=== PATIENT | female | born 1965 | race Caucasian/White ===

== ENCOUNTER 2018-07-20 11:53 | Observation (INO) ==
[2018-07-20 11:57] VITALS: BMI 29.9
[2018-07-20] MEDS ORDERED: ZOFRAN INJ 4 MG VIAL ONE ×3 (12:10→14:45)
[2018-07-20] MEDS ORDERED: NS 1000 ML 1,000 ML ONE ×2 (12:15→14:56)
[2018-07-20] MEDS ORDERED: NS 1000 ML 1,000 ML IV ONE ×2 (12:22→15:04)
[2018-07-20] MEDS ORDERED: ZOFRAN INJ 4 MG VIAL IVP ONE ×2 (12:22→14:38)
[2018-07-20] MEDS ORDERED: DEMEROL INJ IVP ONE ×3 (12:43→17:57)
[2018-07-20] MEDS ORDERED: DEMEROL INJ ONE ×3 (12:46→17:59)
--- NOTE | 2018-07-20 12:48 | DR.GENAD ---
HPI Time Seen Time Seen by Provider: 07/20/18 12:22 PCP Primary Care Physician: delvin HPI Comment HPI Comment: PATIENT IS 52YR OLD WHITE FEMALE WITH HISTORY OF HYPERTENSION, DYSLIPIDEMIA HERE IN ED WITH NAUSEA AND VOMITING TIMES ONE DAY. SEENIN ED LAST NIGHT FOR PAIN AND NOW PAIN IS WORSE. HAVE NOT HELD DOWN FLUIDS. SHE IS WEAK. NO DIARRHEA OR CONSTIPATION. PATIENT IS NAUSEATED IN ED. Complaint/Symptoms Chief Complaint Doctors Comments: ABDOMINAL PAIN WITH NAUSEA AND VOMITING SINCE YESTERDAY. Chief Complaint:: stomach pains vomiting since yesterday, Nurses notes reviewed Nurses Notes Review: Yes Source History Provided: Patient Mode of Arrival Mode of Arrival: Wheelchair Timing Onset of Chief Complaint: 07/19/18 Came on: Suddenly Duration Duration: Constant Duration: Days Location Location: ABDOMEN. Severity Severity: Severe Modifying Factors Worsens:: MOVIING Improves:: LYING STILL. Associated Signs and Symptoms Associated Signs and Symptoms: NAUSEA, VOMITING. Other History Other History: HYPERTENSION. PMH PMH Past Medical History: Yes Past Medical History: Dyslipidemia and Hypertension Past Surgical History: Yes Surgical History: , Hysterectomy, Ortho Surgery and Other Family History History of Family Medical Conditions: Yes Family Medical History: Diabetes Mellitus and Hypertension Social History Does patient currently use any type of tobacco product: No Have you used tobacco products in the last 12 months: No Type of Tobacco Use: None Alcohol Use: None Do you use any recreational Drugs:: No Lives With: Spouse Lives Where: Home infectious screening In the last 2 months have you had wt loss of >10#?: NO Have you had fever, night sweats or hemotysis?: No Have you traveled outside the country in the last 6 months?: No Isolation: Standard ROS Review of Systems Constitutional: No Symptoms Reported, Weakness and Fatigue; negative Fever Eyes: No Symptoms Reported; negative Eye Pain, Tearing and Discharge ENTM: No Symptoms Reported; negative Ear Pain, Nose Discharge, Nose Congestion and Throat Pain Respiratoy: No Symptoms Reported; negative Moist Cough, Short of Breath, Wheezing and Hemoptysis Cardiovascular: No Symptoms Reported; negative Chest Pain, Edema and Palpitations Gastrointestinal/Abdominal: Abdominal Pain, Nausea and Vomiting; negative Constipation and Diarrhea Genitourinary: No Symptoms Reported; negative Dysuria, Frequency and Hematuria Neurological: No Symptoms Reported and Weakness; negative Headache and Dizziness Musculoskeletal: No Symptoms Reported; negative Back Pain, Muscle Pain and Neck Pain Integumentary: No Symptoms Reported; negative Change in Color, Itching, Bruises and Juandice Hematologic/Lymphatic: No Symptoms Reported; negative Easy Bleeding, Easy Bruising, Swollen Glands and Lymphadenopathy Endocrine: No Symptoms Reported; negative Flushing, Increased Thirst and In creased Urine Psychiatric: No Symptoms Reported All Other Systems: Reviewed and Negative PE Vital Signs Vitals: Temperature 98.7 F Pulse Rate [Right Brachial] 93 Pulse Rate [Left Brachial] 80 Pulse Rate 115 Respiratory Rate 18 Blood Pressure [Left Arm] 143/91 Blood Pressure [Right Arm] 150/94 Blood Pressure 136/82 O2 Sat by Pulse Oximetry 97 General General Appearance: Alert and In No Apparent Distress; negative In Distress Head Head Exam: Normal Inspection, Atraumatic and Normocephalic Eyes Eye exam: Normal Appearance, PERRL and EOMI; negative Scleral Icterus and Conjunctival Injection ENT ENT Exam: Normal Exam, Normal Oropharynx, Normal External Ear Exam, Mucous Membranes Moist and TM's Normal Bilaterally External Ear Exam: Normal External Inspection; negative Mastoid Tenderness, Pain with Movement and External Tenderness TM/Canal Exam: Bilateral: Normal Nose Exam: Normal Nose Exam; negative Sinus Tenderness, Nasal Deviation and Septal Hematoma Mouth Exam: Normal Inspection; negative Lip Swelling and Tongue Swelling Throat Exam: Normal Inspection; negative Tonsillar Erythema, Tonsillomegaly and Tonsillar Exudate Neck Neck Exam: Normal Inspection, Full ROM and Trachea Midline; negative Tenderness, Meningismus and Lymphadenopathy Chest Chest Inspection: Normal Inspection and Symmetric Chest Wall Rise; negative T enderness Respiratory Respiratory Exam: Normal Lung Sounds Bilat; negative Chest Wall Tenderness and Respiratory Distress Respiratory Exam: Bilateral: Clear to Auscultation Cardiovascular Cardiovascular Exam: Regular Rate and Normal Rhythm; negative Systolic Murmur, Diastolic Murmur, Rubs and Gallop Abdominal Exam Abdominal Exam: Normal Bowel Sounds, Soft and Tenderness Abdominal Tenderness: Diffuse and Severe Extremities Extremities Exam: Normal Inspection and Normal Capillary Refill; negative Tenderness, Edema and Calf Tenderness Back Back Exam: Normal Inspection; negative Tenderness, (R) CVA Tenderness, (L) CVA Tenderness, Muscle Spasm and Paraspinal Tenderness Neurologic Neurological Exam: Alert, Oriented X3 and CN II-XII Intact; negative Motor Sensory Deficit Psychiatric Psychiatric Exam: Normal Affect and Normal Mood Skin Skin Exam: Warm, Dry, Intact and Normal Color MDM Differential Diagnosis Differential Diagnosis: ABDOMINAL PAIN, BOWEL OBSTRUCTION, APPENDICITIS. DIVERTICULITIS, CHOLECYSTI COURSE Treatment Treatment: SEE ORDERS. Education/Counseling Education/Counseling: Patient Educated On: Diagnosis ROR Labs Reviewed Laboratory Results Reviewed?: Yes Result Diagrams: 07/23/18 04:07 07/23/18 08:40 Laboratory: 07/20/18 20:20 Perineal Fluid Wound Culture - Final Escherichia Coli WBC 7.9 X10^3/uL (3.6-10.0) 07/23/18 04:07 RBC 4.56 X10^6/uL (3.5-5.4) 07/23/18 04:07 Hgb 12.9 g/dL (12.0-16.0) 07/23/18 04:07 Hct 37.9 % (36.0-47.0) 07/23/18 04:07 MCV 83.2 fL (80.0-100.0) 07/23/18 04:07 MCH 28.4 pg (27.0-34.0) 07/23/18 04:07 MCHC 34.1 g/dL (33.0-35.0) 07/23/18 04:07 RDW 13.1 % (11.6-16.5) 07/23/18 04:07 Plt Count 226 X10^3/uL (150.0-450.0) 07/23/18 04:07 Plt Count Comment Adequate (ADEQUATE) 07/20/18 12:43 MPV 7.0 fL (7.4-11.0) L 07/23/18 04:07 Neut % (Auto) 67.5 % (42.0-75.0) 07/23/18 04:07 Lymph % (Auto) 20.1 % (21.0-51.0) L 07/23/18 04:07 [place] % (Auto) 7.5 % (0.0-13.0) 07/23/18 04:07 Eos % (Auto) 4.3 % (0.9-2.9) H 07/23/18 04:07 Baso % (Auto) 0.6 % (0.2-1.0) 07/23/18 04:07 Neut # (Auto) 5.3 x10^3/uL (2.2-4.8) H 07/23/18 04:07 Lymph # (Auto) 1.6 X10^3/uL (1.3-2.9) 07/23/18 04:07 [place] # (Auto) 0.6 x10^3/uL (0.3-0.8) 07/23/18 04:07 Eos # (Auto) 0.3 x10^3/uL (0.0-0.2) H 07/23/18 04:07 Baso # (Auto) 0.0 X10^3/uL (0.0-0.1) 07/23/18 04:07 Absolute Nucleated RBC 0.0 /100WBC 07/23/18 04:07 Total Counted 100 07/20/18 12:43 Neutrophils % (Manual) 85 % (39-76) H 07/20/18 12:43 Lymphocytes % (Manual) 9 % (13-43) L 07/20/18 12:43 Monocytes % (Manual) 6 % (4-9) 07/20/18 12:43 Plt Morphology Comment Normal (NORMAL) 07/20/18 12:43 RBC Morphology Normal (NORMAL) 07/20/18 12:43 Sodium 139 mmol/L (136-145) 07/23/18 04:07 Corrected Sodium TNP 07/23/18 04:07 Potassium 3.5 mmol/L (3.5-5.1) 07/23/18 08:40 Chloride 104 mmol/L (98-107) 07/23/18 04:07 Carbon Dioxide 27.4 mmol/L (21-32) 07/23/18 04:07 BUN 4 mg/dL (7-18) L 07/23/18 04:07 Creatinine 0.83 mg/dL (0.55-1.02) 07/23/18 04:07 Est GFR (MDRD) Af Amer > 60 (>60) 07/23/18 04:07 Est GFR (MDRD) Non-Af > 60 (>60) 07/23/18 04:07 Glucose 108 mg/dL (65-99) H 07/23/18 04:07 Calcium 8.8 mg/dL (8.5-10.1) 07/23/18 04:07 Corrected Calcium 9.9 mg/dL (8.5-10.1) 07/23/18 04:07 Magnesium 1.8 mg/dL (1.7-2.9) 07/23/18 04:07 Total Bilirubin 0.70 mg/dL (0.2-1.0) 07/23/18 04:07 AST 16 Units/L (15-37) 07/23/18 04:07 ALT 20 Units/L (12-78) 07/23/18 04:07 Alkaline Phosphatase 101 Units/L (46-116) 07/23/18 04:07 Total Protein 6.8 g/dL (6.4-8.2) 07/23/18 04:07 Albumin 2.6 g/dL (3.4-5.0) L 07/23/18 04:07 Globulin 4.2 g/dL (2.5-4.5) 07/23/18 04:07 Albumin/Globulin Ratio 0.6 Ratio (1.1-2.1) L 07/23/18 04:07 Amylase 49 Units/L (25-115) 07/20/18 12:43 Lipase 67 Units/L (73-393) L 07/20/18 12:43 Specimen Type Clean catch urine 07/20/18 14:54 Urine Color Yellow (YELLOW) 07/20/18 14:54 Urine Appearance Clear (CLEAR) 07/20/18 14:54 Urine pH 6.5 (5.0 - 8.0) 07/20/18 14:54 Ur Specific [place] 1.010 (1.000-1.030) 07/20/18 14:54 Urine Protein Negative (NEGATIVE) 07/20/18 14:54 Urine Glucose (UA) Negative (NEGATIVE) 07/20/18 14:54 Urine Ketones 4+ (NEGATIVE) 07/20/18 14:54 Urine Occult Blood 1+ (NEGATIVE) 07/20/18 14:54 Urine Nitrite Negative (NEGATIVE) 07/20/18 14:54 Urine Bilirubin Negative (NEGATIVE) 07/20/18 14:54 Urine Urobilinogen Normal (NORMAL) 07/20/18 14:54 Ur Leukocyte Esterase Negative (NEGATIVE) 07/20/18 14:54 Urine RBC 0-2 /HPF (NONE SEEN) 07/20/18 14:54 Urine WBC 0-2 /HPF (NONE SEEN) 07/20/18 14:54 Ur Squamous Epith Cells Rare /HPF (NEGATIVE) 07/20/18 14:54 Urine Bacteria Negative /HPF (NEGATIVE) 07/20/18 14:54 Ur Culture Indicated? No/not indicated 07/20/18 14:54 Acetone, Semi-Quant Negative (NEGATIVE) 07/20/18 18:09 Tissue Pathology To follow 07/20/18 20:24 XRAY XRAY Interpreted by: Radiologist XRAY Findings: REPORT ON RECORD NOTED AND DISCUSS WITH PATIENT. Diagnosis Discharge Problem: Acute appendicitis Qualifiers: Acute appendicitis type: with localized peritonitis Appendicitis gangrene presence: unspecified whether gangrene present Appendicitis perforation presence: without perforation Appendicitis abscess presence: without abscess Qu alified Code(s): K35.30 - Acute appendicitis with localized peritonitis, without perforation or gangrene Instructions Instructions: Hypertension, [id number] Laparoscopic Appendectomy, Adult, Care After, [id number] Laparoscopic Appendectomy, Adult Forms: Patient Portal
[2018-07-20 12:56] LABS: BASOPHILS % (AUTO) 0.1 % (0.2-1.0); EOSINOPHILS % (AUTO) 0.2 % (0.9-2.9); HEMATOCRIT 46.4 % (36.0-47.0); HEMOGLOBIN 15.5 g/dL (12.0-16.0); LYMPHOCYTES # (AUTO) 0.6 X10^3/uL (1.3-2.9); LYMPHOCYTES % (AUTO) 3.1 % (21.0-51.0); MEAN CORPUSCULAR HEMOGLOBIN 27.7 pg (27.0-34.0); MEAN CORPUSCULAR HGB CONC 33.3 g/dL (33.0-35.0); MEAN CORPUSCULAR VOLUME 83.4 fL (80.0-100.0); MEAN PLATELET VOLUME 6.6 fL (7.4-11.0); MONOCYTES # (AUTO) 0.7 x10^3/uL (0.3-0.8); MONOCYTES % (AUTO) 3.8 % (0.0-13.0); NEUTROPHILS # (AUTO) 18.1 x10^3/uL (2.2-4.8); NEUTROPHILS % (AUTO) 92.8 % (42.0-75.0); PLATELET COUNT 267 X10^3/uL (150.0-450.0); RED BLOOD COUNT 5.57 X10^6/uL (3.5-5.4); WHITE BLOOD COUNT 19.5 X10^3/uL (3.6-10.0)
[2018-07-20 12:59] LABS: AMYLASE 49 Units/L (25-115); LIPASE 67 Units/L (73-393)
[2018-07-20 13:04] LABS: PLATELET MORPHOLOGY COMMENT NORMAL (NORMAL)
[2018-07-20] MEDS ORDERED: ROBINUL ONE (14:45)
[2018-07-20] MEDS ORDERED: XYLOCAINE 1 % (PLAIN) ONE (14:45)
[2018-07-20] MEDS ORDERED: TORADOL 30 MG VIAL ONE (14:45)
[2018-07-20] MEDS ORDERED: QUELICIN (OR ANECTINE) ONE (14:45)
[2018-07-20] MEDS ORDERED: NEOSTIGMINE INJ ONE (14:45)
[2018-07-20] MEDS ORDERED: VERSED ONE (14:45)
[2018-07-20] MEDS ORDERED: SUPRANE ONE (14:45)
[2018-07-20] MEDS ORDERED: NORCURON INJ 10 MG VIAL ONE (14:45)
[2018-07-20] MEDS ORDERED: DIPRIVAN VIAL ONE (14:45)
[2018-07-20 14:50] LABS: ALANINE AMINOTRANSFERASE 31 Units/L (12-78); ALBUMIN 3.8 g/dL (3.4-5.0); ALKALINE PHOSPHATASE 159 Units/L (46-116); BLOOD UREA NITROGEN 12 mg/dL (7-18); CALCIUM 9.5 mg/dL (8.5-10.1); CARBON DIOXIDE 22.5 mmol/L (21-32); CHLORIDE 100 mmol/L (98-107); COR NA(FOR HYPERGLY) 139 mmol/L (136-145); CREATININE 0.81 mg/dL (0.55-1.02); SODIUM 139 mmol/L (136-145); TOTAL PROTEIN 8.3 g/dL (6.4-8.2); eGFR NON BLACK RACES > 60 (>60)
[2018-07-20 14:51] LABS: ASPARTATE AMINO TRANSFERASE 31 Units/L (15-37)
[2018-07-20 15:01] LABS: BILIRUBIN,URINE NEGATIVE (NEGATIVE); BLOOD/HEMOGLOBIN,URINE 1+ (NEGATIVE); GLUCOSE, URINE NEGATIVE (NEGATIVE); KETONES,URINE 4+ (NEGATIVE); LEUKOCYTE ESTERASE ,URINE NEGATIVE (NEGATIVE); NITRITES,URINE NEGATIVE (NEGATIVE); PH,URINE 6.5 (5.0 - 8.0); PROTEIN,URINE NEGATIVE (NEGATIVE); UROBILINOGEN,URINE NORMAL (NORMAL)
[2018-07-20 15:03] LABS: APPEARANCE,URINE CLEAR (CLEAR); COLOR,URINE YELLOW (YELLOW)
[2018-07-20 15:07] LABS: BACTERIA,URINE NEGATIVE /HPF (NEGATIVE); RBC,URINE 0-2 /HPF (NONE SEEN); SQUAMOUS EPITHELIAL CELL,UR RARE /HPF (NEGATIVE)
[2018-07-20] MEDS ORDERED: NS IRRIGATION 3000 ML ONE (15:39)
[2018-07-20] MEDS ORDERED: NS 100 ML IV 100 ML ONE (16:45)
--- NOTE | 2018-07-20 17:43 | CT ---
HISTORY: Epigastric and right flank pain, vomiting Study: CT abdomen and pelvis with contrast Comparison: None Technique: Multiple axial images of the abdomen and pelvis were obtained from the lung bases to the pubic symphysis after the administration of IV contrast. AEC was utilized. Findings: The visualized portions of the lung bases are unremarkable. The spleen, pancreas, kidneys, and adrenal glands are unremarkable. There is diffuse low attenuation within the liver compatible with fatty infiltration. The gallbladder is unremarkable in its CT appearance. No significant mesenteric or retroperitoneal lymphadenopathy can be observed. Sigmoid diverticulosis is noted. The patient is status post hysterectomy. The appendix is dilated and fluid-filled with mucosal enhancement and wall thickening with surrounding mesenteric fat stranding as well as with trace free fluid in the right lower quadrant and extending into the pelvis compatible with acute appendicitis without pneumoperitoneum to suggest perforation and without focal fluid collection to suggest abscess. The urinary bladder is grossly unremarkable. Lumbar spondylosis and scoliosis are noted. A mesenteric fat containing umbilical hernia is noted. IMPRESSION: Findings compatible with acute appendicitis without perforation or abscess. Other incidentals as above. Reported By:
[2018-07-20] MEDS ORDERED: ZOSYN VIAL 3.375 GRAMS 3.375 G in NS 100 ML IV + SPIKE MINIBAG* 100 ML IV ONE (18:37)
[2018-07-20] MEDS ORDERED: ZOSYN VIAL 3.375 GRAMS IV ONE (18:50)
[2018-07-20] MEDS ORDERED: NS 100 ML IV + SPIKE MINIBAG* 100 ML ONE (18:50)
[2018-07-20] MEDS ORDERED: DILAUDID INJ IVP PRN ×2 (19:10→20:21)
[2018-07-20] MEDS ORDERED: PEPCID 20 MG IV PREMIX* 20 MG/50 ML BAG IV PRN (19:10)
[2018-07-20] MEDS ORDERED: FENTANYL INJ 250 mcg ONE (19:24)
[2018-07-20] MEDS ORDERED: NS 1000 ML 1,000 ML IV SCH (20:00)
[2018-07-20] MEDS ORDERED: LR 1000 ML IV 1,000 ML ONE (20:04)
[2018-07-20] MEDS ORDERED: REGLAN INJ 10 MG VIAL IVP PRN (20:21)
[2018-07-20] MEDS ORDERED: PHENERGAN INJ 25 MG IM PRN (20:21)
[2018-07-20] MEDS ORDERED: BENADRYL INJ 50 MG VIAL IVP PRN (20:21)
[2018-07-20] MEDS ORDERED: ZOFRAN INJ 4 MG VIAL IVP PRN (20:21)
[2018-07-20] MEDS ORDERED: BACTROBAN TOPICAL OINT ONE (20:30)
[2018-07-20] MEDS ORDERED: FLAGYL IV PREMIX 500 MG BAG 500 MG/100 ML BAG IV SCH ×2 (21:00)
--- NOTE | 2018-07-20 21:09 | OR.GENERIC ---
Post-Op Note Generic - Post-Op Note Operative Report: lap appendectomy . finding : acute suppurative appendicitis with localized peritonitis . EBL 10 cc . on IV ATB and IVF . may have ice and sips of water .
[2018-07-20] MEDS: ZOSYN VIAL 3.375 GRAMS 3.375 G in NS 100 ML IV + SPIKE MINIBAG* 100 ML IV SCH (21:59)
[2018-07-20] MEDS: D5 1/2 NS 1000 ML 1,000 ML IV SCH (21:59)
[2018-07-21] MEDS ORDERED: CHLORASEPTIC SPRAY MT PRN (01:22)
[2018-07-21] MEDS ORDERED: CHLORASEPTIC SPRAY ONE (01:23)
[2018-07-21] MEDS: DILAUDID INJ IVP PRN ×3 (02:30→09:24)
[2018-07-21] MEDS: D5 1/2 NS 1000 ML 1,000 ML IV SCH ×4 (02:42→21:46)
[2018-07-21 05:27] LABS: BASOPHILS % (AUTO) 0.1 % (0.2-1.0); HEMATOCRIT 35.5 % (36.0-47.0); LYMPHOCYTES # (AUTO) 1.1 X10^3/uL (1.3-2.9); LYMPHOCYTES % (AUTO) 8.6 % (21.0-51.0); MEAN CORPUSCULAR HEMOGLOBIN 28.2 pg (27.0-34.0); MEAN CORPUSCULAR HGB CONC 33.8 g/dL (33.0-35.0); MEAN CORPUSCULAR VOLUME 83.4 fL (80.0-100.0); MONOCYTES # (AUTO) 0.7 x10^3/uL (0.3-0.8); MONOCYTES % (AUTO) 5.8 % (0.0-13.0); NEUTROPHILS # (AUTO) 10.6 x10^3/uL (2.2-4.8); NEUTROPHILS % (AUTO) 85.5 % (42.0-75.0); PLATELET COUNT 233 X10^3/uL (150.0-450.0); RED BLOOD COUNT 4.25 X10^6/uL (3.5-5.4); WHITE BLOOD COUNT 12.4 X10^3/uL (3.6-10.0)
[2018-07-21 05:46] LABS: ALANINE AMINOTRANSFERASE 23 Units/L (12-78); ALBUMIN 2.6 g/dL (3.4-5.0); ALKALINE PHOSPHATASE 104 Units/L (46-116); ASPARTATE AMINO TRANSFERASE 13 Units/L (15-37); BLOOD UREA NITROGEN 11 mg/dL (7-18); CALCIUM 8.3 mg/dL (8.5-10.1); CARBON DIOXIDE 27.5 mmol/L (21-32); CHLORIDE 105 mmol/L (98-107); COR CA(FOR HYPOALB) 9.4 mg/dL (8.5-10.1); COR NA(FOR HYPERGLY) 141 mmol/L (136-145); CREATININE 0.84 mg/dL (0.55-1.02); SODIUM 140 mmol/L (136-145); TOTAL PROTEIN 6.2 g/dL (6.4-8.2); eGFR NON BLACK RACES > 60 (>60)
[2018-07-21] MEDS: ZOSYN VIAL 3.375 GRAMS 3.375 G in NS 100 ML IV + SPIKE MINIBAG* 100 ML IV SCH ×3 (06:04→21:12)
[2018-07-21] MEDS ORDERED: K-RIDER 10 MEQ/NS 100 ML 10 MEQ/100 ML BAG IV PRN (07:54)
[2018-07-21] MEDS ORDERED: POTASSIUM CHL 60 MEQ/NS 0.45% 500 ML IV PRN (07:54)
[2018-07-21] MEDS ORDERED: MICRO K EXTEN CAP 10 MEQ PO PRN (07:54)
[2018-07-21] MEDS ORDERED: POTASSIUM CHLORIDE LIQ 20 MEQ UDC PO PRN (07:54)
[2018-07-21] MEDS ORDERED: KLOR-CON PO PRN (07:54)
[2018-07-21] MEDS ORDERED: POTASSIUM CHL 40 MEQ/NS 0.45% 500 ML IV PRN (07:54)
[2018-07-21] MEDS: K-DUR TAB 20 MEQ PO PRN (09:25)
[2018-07-21] MEDS: MAGNESIUM SULFATE 1 GRAM/100 mL PREMIX 1 GM/100 ML BAG IV PRN (11:06)
[2018-07-21] MEDS: FLAGYL IV PREMIX 500 MG BAG 500 MG/100 ML BAG IV SCH ×3 (13:07→21:12)
[2018-07-21] MEDS ORDERED: TYLENOL 325 MG TAB PO ONE (13:12)
[2018-07-21] MEDS: TYLENOL 325 MG TAB PO PRN ×2 (13:31→21:19)
[2018-07-21] MEDS: ZOFRAN INJ 4 MG VIAL IVP PRN (13:55)
[2018-07-21] MEDS: COLACE CAP 100 MG PO SCH (21:12)
[2018-07-22] MEDS ORDERED: NS 100 ML IV + SPIKE MINIBAG* 100 ML ONE (04:22)
[2018-07-22] MEDS: FLAGYL IV PREMIX 500 MG BAG 500 MG/100 ML BAG IV SCH ×3 (05:00→21:15)
[2018-07-22] MEDS: ZOSYN VIAL 3.375 GRAMS 3.375 G in NS 100 ML IV + SPIKE MINIBAG* 100 ML IV SCH ×3 (05:28→21:16)
[2018-07-22 05:44] LABS: BASOPHILS # (AUTO) 0.1 X10^3/uL (0.0-0.1); BASOPHILS % (AUTO) 0.7 % (0.2-1.0); EOSINOPHILS # (AUTO) 0.1 x10^3/uL (0.0-0.2); EOSINOPHILS % (AUTO) 0.8 % (0.9-2.9); HEMATOCRIT 34.2 % (36.0-47.0); HEMOGLOBIN 11.9 g/dL (12.0-16.0); LYMPHOCYTES # (AUTO) 1.2 X10^3/uL (1.3-2.9); LYMPHOCYTES % (AUTO) 14.9 % (21.0-51.0); MEAN CORPUSCULAR HEMOGLOBIN 28.6 pg (27.0-34.0); MEAN CORPUSCULAR HGB CONC 34.7 g/dL (33.0-35.0); MEAN CORPUSCULAR VOLUME 82.4 fL (80.0-100.0); MEAN PLATELET VOLUME 6.5 fL (7.4-11.0); MONOCYTES # (AUTO) 0.5 x10^3/uL (0.3-0.8); MONOCYTES % (AUTO) 6.8 % (0.0-13.0); NEUTROPHILS % (AUTO) 76.8 % (42.0-75.0); PLATELET COUNT 194 X10^3/uL (150.0-450.0); RED BLOOD COUNT 4.15 X10^6/uL (3.5-5.4); RED CELL DISTRIBUTION WIDTH 12.9 % (11.6-16.5); WHITE BLOOD COUNT 7.8 X10^3/uL (3.6-10.0)
[2018-07-22] MEDS: DILAUDID INJ IVP PRN ×3 (05:51→20:01)
[2018-07-22 06:01] LABS: ALANINE AMINOTRANSFERASE 21 Units/L (12-78); ALBUMIN 2.5 g/dL (3.4-5.0); ALKALINE PHOSPHATASE 101 Units/L (46-116); ASPARTATE AMINO TRANSFERASE 14 Units/L (15-37); BLOOD UREA NITROGEN 7 mg/dL (7-18); CALCIUM 8.1 mg/dL (8.5-10.1); CHLORIDE 106 mmol/L (98-107); COR CA(FOR HYPOALB) 9.3 mg/dL (8.5-10.1); CREATININE 0.81 mg/dL (0.55-1.02); SODIUM 139 mmol/L (136-145); TOTAL PROTEIN 6.3 g/dL (6.4-8.2); eGFR NON BLACK RACES > 60 (>60)
[2018-07-22] MEDS: K-DUR TAB 20 MEQ PO PRN ×2 (06:35→09:58)
--- NOTE | 2018-07-22 07:15 | DR.H&P ---
H&P - History & Physical for Day of: H&P Date: 07/20/18 - Chief Complaint Chief Complaint: ABDOMINAL PAIN, NAUSEA, VOMITING - History of Present Illness History of Present Illness: IS A 52 YEAR OLD PATIENT OF OURS WHO PRESENTED TO THE ER WITH COMPLAINTS OF ABDOMINAL PAIN, NAUSEA, AND VOMITING X 1 DAY. SHE REPORTS DIFFUSE ABDOMINAL PAIN, BUT MOST SEVERE TO THE RLQ. ON ARRIVAL, VITALS WERE 99.2-99-16-97%-177/104. LABS WERE OBTAINED. ABNORMAL LAB VALUES INCLUDE THE FOLLOWING: WBC 19.5, RBC 5.57, GLUCOSE 117, TOTAL BILI 1.10, ALK PHOS 159, TOTAL PROTEIN 8.3, LIPASE 67. AN ABDOMEN/PELVIS CT WAS OBTAINED AND REVEALED: Findings compatible with acute appendicitis without perforation or abscess. Sigmoid diverticulosis and Lumbar spondylosis noted. AN EKG WAS OBTAINED FOR SURGICAL CLEARANCE. IT REVEALED SINUS TACHYCARDIA WITH HR 118. WE CONSULTED FOR A LAPROSCOPIC APPENDECTOMY. HE CONSULTED WITH HER AND PLANS TO TAKE HER TO THE OR [facility]. WE ARE IN AGREEMENT WITH PLAN. PATIENT IS MEDICALLY CLEAR AND STABLE FOR SURGERY. SHE WILL BE STARTED ON D5/12NS AT 150ML/HR, PEPCID IV, FLAGYL 500MG IV Q8H, AND ZOSYN 3.375G IV TID. WE WILL GIVE DILAUDID 1MG IV Q3H PRN PAIN. OTHERWISE, WE WILL FOLLOW UP WITH AM LABS AND CONTINUE TO MONITOR. - Past Medical History Past Medical History: Hypertension, Dyslipidemia - Past Surgical History Surgical History: , Hysterectomy, Ortho Surgery - Family History Family Medical History: Diabetes Mellitus, Cancer, [place], Hypertension - Social History Does patient currently use any type of tobacco product: No Have you used tobacco products in the last 12 months: No Type of Tobacco Use: None Does any household member use tobacco: No Alcohol Use: None Drug Use: None - Medications Home Medications: No Known Drug Allergies Allergy (Verified 07/20/18 00:00) CONTINUE taking the following medications hydrocodone-acetaminophen [[place]] 1 tab PO Q6H PRN 07/21/18 [History] - Review of Systems Constitutional: Fever Eyes: No Symptoms Reported ENT: No Symptoms Reported Respiratory: No Symptoms Reported Cardiovascular: No Symptoms Reported Gastrointestinal: Nausea, Vomiting, Abdominal Pain Genitourinary: No Symptoms Reported Musculoskeletal: No Symptoms Reported Skin: No Symptoms Reported Neurological: No Symptoms Reported - Physical Exam Vital Signs: Temperature 98.4 F Pulse Rate [Right Brachial] 99 Pulse Rate [Left Brachial] 80 Pulse Rate 115 Respiratory Rate 16 Blood Pressure [Left Arm] 143/91 Blood Pressure [Right Arm] 136/80 Blood Pressure 136/82 O2 Sat by Pulse Oximetry 93 Oriented: Normal Eyes: Normal Ear: Normal Nose: Normal Throat: Normal Respiratory: Clear Throughout Cardiovascular: Tachycardia. negative: S3, S4, Murmur : Normal Auscultation: Bowel Sounds: Normal Palpation: Normal Tenderness: Diffuse, RLQ Skin: Normal Musculoskeletal: Normal Psychiatric: Normal Mood Description: Calm Affect: Normal Speech Pattern: Clear - Assessment/Plan (1) Acute appendicitis Qualifiers: Acute appendicitis type: with localized peritonitis Appendicitis gangrene presence: unspecified whether gangrene present Appendicitis perforation presence: without perforation Appendicitis abscess presence: without abscess Qualified Code(s): K35.30 - Acute appendicitis with localized peritonitis, without perforation or gangrene Status: Acute Plan: LAP APPENDECTOMY, DILAUDID FOR PAIN, IV HYDRATION, CONTINUE TO MONITOR - Allergies Allergies/Adverse Reactions: Allergies Allergy/AdvReac Type Severity Reaction Status Date / Time No Known Drug Allergies Allergy Verified 07/20/18 00:00
[2018-07-22] MEDS ORDERED: MYLICON TAB 80 MG CHEW PO PRN (10:47)
--- NOTE | 2018-07-22 11:28 | DR.PROGNOT ---
Hospital Progress Notes - Progress Note for Day of: Progress Note Date: 07/22/18 - Chief Complaint Chief Complaint: PO lap appendectomy day 2. doing fairly well . tolerating diet well , no nausea or vomiting .passing flatus . peritonial culture showed gram - rods . WBC normal today . had low grade fever 99.1 earlier . minimal drainage in ASA. ambulatory . - Past Medical Family Social History Past Med/Fam/Surg Hx: No changes since H&P Allergies: Allergies No Known Drug Allergies Allergy (Verified 07/20/18 00:00) - Review Of Systems ROS: No change since H&P - Vital Signs Vital Signs: Temperature 98.4 F Pulse Rate [Right Brachial] 101 Pulse Rate [Left Brachial] 80 Pulse Rate 115 Respiratory Rate 18 Blood Pressure [Left Arm] 143/91 Blood Pressure [Right Arm] 158/88 Blood Pressure 136/82 O2 Sat by Pulse Oximetry 93 - Physical Exam Oriented: Normal Eyes: Normal Ear: Normal Nose: Normal Throat: Normal Respiratory: Normal Cardiovascular: Normal. negative: S3, S4, Murmur : Normal GI:Auscultation: Normal GI:Palpation: Normal GI: Tenderness: Diffuse (soft abdomen , BS + with mild RLQ tenderness ), RLQ Skin: Normal Musculoskeletal: Normal Psychiatric: Normal Mood Description: Calm Affect: Normal Speech Pattern: Clear - Laboratory and Diagnostics Result Diagrams: 07/22/18 05:30 07/22/18 08:30 Labs: 07/20/18 20:20 Perineal Fluid Wound Culture - Preliminary Laboratory WBC 7.8 X10^3/uL (3.6-10.0) 07/22/18 05:30 RBC 4.15 X10^6/uL (3.5-5.4) 07/22/18 05:30 Hgb 11.9 g/dL (12.0-16.0) L 07/22/18 05:30 Hct 34.2 % (36.0-47.0) L 07/22/18 05:30 MCV 82.4 fL (80.0-100.0) 07/22/18 05:30 MCH 28.6 pg (27.0-34.0) 07/22/18 05:30 MCHC 34.7 g/dL (33.0-35.0) 07/22/18 05:30 RDW 12.9 % (11.6-16.5) 07/22/18 05:30 Plt Count 194 X10^3/uL (150.0-450.0) 07/22/18 05:30 Plt Count Comment Adequate (ADEQUATE) 07/20/18 12:43 MPV 6.5 fL (7.4-11.0) L 07/22/18 05:30 Neut % (Auto) 76.8 % (42.0-75.0) H 07/22/18 05:30 Lymph % (Auto) 14.9 % (21.0-51.0) L 07/22/18 05:30 [place] % (Auto) 6.8 % (0.0-13.0) 07/22/18 05:30 Eos % (Auto) 0.8 % (0.9-2.9) L 07/22/18 05:30 Baso % (Auto) 0.7 % (0.2-1.0) 07/22/18 05:30 Neut # (Auto) 6.0 x10^3/uL (2.2-4.8) H 07/22/18 05:30 Lymph # (Auto) 1.2 X10^3/uL (1.3-2.9) L 07/22/18 05:30 [place] # (Auto) 0.5 x10^3/uL (0.3-0.8) 07/22/18 05:30 Eos # (Auto) 0.1 x10^3/uL (0.0-0.2) 07/22/18 05:30 Baso # (Auto) 0.1 X10^3/uL (0.0-0.1) 07/22/18 05:30 Absolute Nucleated RBC 0.0 /100WBC 07/22/18 05:30 Total Counted 100 07/20/18 12:43 Neutrophils % (Manual) 85 % (39-76) H 07/20/18 12:43 Lymphocytes % (Manual) 9 % (13-43) L 07/20/18 12:43 Monocytes % (Manual) 6 % (4-9) 07/20/18 12:43 Plt Morphology Comment Normal (NORMAL) 07/20/18 12:43 RBC Morphology Normal (NORMAL) 07/20/18 12:43 Sodium 139 mmol/L (136-145) 07/22/18 05:30 Corrected Sodium TNP 07/22/18 05:30 Potassium 3.2 mmol/L (3.5-5.1) L 07/22/18 08:30 Chloride 106 mmol/L (98-107) 07/22/18 05:30 Carbon Dioxide 26.0 mmol/L (21-32) 07/22/18 05:30 BUN 7 mg/dL (7-18) 07/22/18 05:30 Creatinine 0.81 mg/dL (0.55-1.02) 07/22/18 05:30 Est GFR (MDRD) Af Amer > 60 (>60) 07/22/18 05:30 Est GFR (MDRD) Non-Af > 60 (>60) 07/22/18 05:30 Glucose 110 mg/dL (65-99) H 07/22/18 05:30 Calcium 8.1 mg/dL (8.5-10.1) L 07/22/18 05:30 Corrected Calcium 9.3 mg/dL (8.5-10.1) 07/22/18 05:30 Magnesium 2.0 mg/dL (1.7-2.9) 07/22/18 05:30 Total Bilirubin 0.80 mg/dL (0.2-1.0) 07/22/18 05:30 AST 14 Units/L (15-37) L 07/22/18 05:30 ALT 21 Units/L (12-78) 07/22/18 05:30 Alkaline Phosphatase 101 Units/L (46-116) 07/22/18 05:30 Total Protein 6.3 g/dL (6.4-8.2) L 07/22/18 05:30 Albumin 2.5 g/dL (3.4-5.0) L 07/22/18 05:30 Globulin 3.8 g/dL (2.5-4.5) 07/22/18 05:30 Albumin/Globulin Ratio 0.7 Ratio (1.1-2.1) L 07/22/18 05:30 Amylase 49 Units/L (25-115) 07/20/18 12:43 Lipase 67 Units/L (73-393) L 07/20/18 12:43 Specimen Type Clean catch urine 07/20/18 14:54 Urine Color Yellow (YELLOW) 07/20/18 14:54 Urine Appearance Clear (CLEAR) 07/20/18 14:54 Urine pH 6.5 (5.0 - 8.0) 07/20/18 14:54 Ur Specific [place] 1.010 (1.000-1.030) 07/20/18 14:54 Urine Protein Negative (NEGATIVE) 07/20/18 14:54 Urine Glucose (UA) Negative (NEGATIVE) 07/20/18 14:54 Urine Ketones 4+ (NEGATIVE) 07/20/18 14:54 Urine Occult Blood 1+ (NEGATIVE) 07/20/18 14:54 Urine Nitrite Negative (NEGATIVE) 07/20/18 14:54 Urine Bilirubin Negative (NEGATIVE) 07/20/18 14:54 Urine Urobilinogen Normal (NORMAL) 07/20/18 14:54 Ur Leukocyte Esterase Negative (NEGATIVE) 07/20/18 14:54 Urine RBC 0-2 /HPF (NONE SEEN) 07/20/18 14:54 Urine WBC 0-2 /HPF (NONE SEEN) 07/20/18 14:54 Ur Squamous Epith Cells Rare /HPF (NEGATIVE) 07/20/18 14:54 Urine Bacteria Negative /HPF (NEGATIVE) 07/20/18 14:54 Ur Culture Indicated? No/not indicated 07/20/18 14:54 Acetone, Semi-Quant Negative (NEGATIVE) 07/20/18 18:09 Tissue Pathology To follow 07/20/18 20:24 - Assessment and Plan 1: PO lap appendectomy for acute suppurative appendicitis with localized pe ritonitis . ASA was removed . will advance diet . same IV ATB . discharge in am . - Problem Patient Problems: Patient Problems Acute appendicitis (Acute) K35.80
[2018-07-22] MEDS: D5 1/2 NS 1000 ML 1,000 ML IV SCH ×2 (12:43→20:00)
[2018-07-22] MEDS: ZOFRAN INJ 4 MG VIAL IVP PRN (12:44)
[2018-07-22] MEDS: HYZAAR 50/12.5 MG PO SCH (14:09)
[2018-07-22] MEDS: LIPITOR TAB 20 MG PO SCH (14:09)
[2018-07-22] MEDS: COLACE CAP 100 MG PO SCH (20:01)
--- NOTE | 2018-07-22 21:35 | PCM.PROG ---
Progress Note - Progress Note for Day of Date of Exam: 07/21/18 - Subjective Subjective: IS DAY 1 POST OP APPENDECTOMY. TODAY, SHE IS ALERT AND ORIENTED, LYING IN BED ON MORNING ROUNDS. SHE IS NOTED WITH COMPLAINTS OF ABDOMINAL PAIN. ON EXAMINATION, HEART IS REGULAR IN RATE AND RHYTHM. BILATERAL LUNGS ARE NOTED TO BE CLEAR TO AUSCULTATION. ABDOMEN IS ROUND, SOFT, AND NOTED WITH DIFFUSE TENDERNESS. DRESSINGS ARE DRY AND INTACT WITH NO SIGNS OR SX INFECTION NOTED. ASA DRAIN NOTED WITH A SMALL AMOUNT OF DRAINAGE. HER VITALS THIS MORNING ARE 98.2-99-18-93%-116/70. LABS WERE OBTAINED. ABNORMAL LAB VALUES INCLUDE THE FOLLOWING: WBC 12.4, HCT 35.5, GLUCOSE 143, CALCIUM 8.3, TOTAL BILI 1.30, AST 13, TOTAL PROTEIN 6.2, ALBUMIN 2.6. PERONEAL FLUID CULTURE PENDING. SHE IS CURRENTLY RECEIVING IV FLAGYL, IV ZOSYN, IV FLUIDS, AND PAIN MEDICATIONS. WE WILL CONTINUE CURRENT PLAN OF CARE TODAY. OTHERWISE, WE WILL FOLLOW UP WITH AM LABS AND CONTINUE TO MONITOR. - Past Medical Family Social History Past Med/Fam/Surg Hx: No changes since H&P Allergies: Allergies No Known Drug Allergies Allergy (Verified 07/20/18 00:00) - Review of Systems ROS: No change since H&P - Vital Signs and I&O's Vital Signs: Temperature 98.4 F Pulse Rate [Right Brachial] 105 Pulse Rate [Left Brachial] 80 Pulse Rate 115 Respiratory Rate 20 Blood Pressure [Left Arm] 143/91 Blood Pressure [Right Arm] 135/85 Blood Pressure 136/82 O2 Sat by Pulse Oximetry 95 Intake and Output: Intake & Output 07/20/18 07/21/18 07/22/18 07/23/18 11:59 11:59 11:59 11:59 Intake Total 3512 / 3512 3760 / 3760 2099 Output Total 2009 Balance 1502 / 1502 3740 / 3740 2099 - Physical Exam Oriented: Normal Eyes: Normal Ear: Normal Nose: Normal Throat: Normal Respiratory: Normal Cardiovascular: Normal. negative: S3, S4, Murmur : Normal Auscultation: Bowel Sounds: Normal Palpation: Normal Tenderness: Diffuse (soft abdomen , BS + with mild RLQ tenderness ), RLQ Skin: Normal Musculoskeletal: Normal Psychiatric: Normal Mood Description: Calm Affect: Normal Speech Pattern: Clear, Appropriate - Laboratory and Diagnostics Result Diagrams: 07/22/18 05:30 07/22/18 13:28 Labs: 07/20/18 20:20 Perineal Fluid Wound Culture - Preliminary Laboratory WBC 7.8 X10^3/uL (3.6-10.0) 07/22/18 05:30 RBC 4.15 X10^6/uL (3.5-5.4) 07/22/18 05:30 Hgb 11.9 g/dL (12.0-16.0) L 07/22/18 05:30 Hct 34.2 % (36.0-47.0) L 07/22/18 05:30 MCV 82.4 fL (80.0-100.0) 07/22/18 05:30 MCH 28.6 pg (27.0-34.0) 07/22/18 05:30 MCHC 34.7 g/dL (33.0-35.0) 07/22/18 05:30 RDW 12.9 % (11.6-16.5) 07/22/18 05:30 Plt Count 194 X10^3/uL (150.0-450.0) 07/22/18 05:30 Plt Count Comment Adequate (ADEQUATE) 07/20/18 12:43 MPV 6.5 fL (7.4-11.0) L 07/22/18 05:30 Neut % (Auto) 76.8 % (42.0-75.0) H 07/22/18 05:30 Lymph % (Auto) 14.9 % (21.0-51.0) L 07/22/18 05:30 [place] % (Auto) 6.8 % (0.0-13.0) 07/22/18 05:30 Eos % (Auto) 0.8 % (0.9-2.9) L 07/22/18 05:30 Baso % (Auto) 0.7 % (0.2-1.0) 07/22/18 05:30 Neut # (Auto) 6.0 x10^3/uL (2.2-4.8) H 07/22/18 05:30 Lymph # (Auto) 1.2 X10^3/uL (1.3-2.9) L 07/22/18 05:30 [place] # (Auto) 0.5 x10^3/uL (0.3-0.8) 07/22/18 05:30 Eos # (Auto) 0.1 x10^3/uL (0.0-0.2) 07/22/18 05:30 Baso # (Auto) 0.1 X10^3/uL (0.0-0.1) 07/22/18 05:30 Absolute Nucleated RBC 0.0 /100WBC 07/22/18 05:30 Total Counted 100 07/20/18 12:43 Neutrophils % (Manual) 85 % (39-76) H 07/20/18 12:43 Lymphocytes % (Manual) 9 % (13-43) L 07/20/18 12:43 Monocytes % (Manual) 6 % (4-9) 07/20/18 12:43 Plt Morphology Comment Normal (NORMAL) 07/20/18 12:43 RBC Morphology Normal (NORMAL) 07/20/18 12:43 Sodium 139 mmol/L (136-145) 07/22/18 05:30 Corrected Sodium TNP 07/22/18 05:30 Potassium 3.4 mmol/L (3.5-5.1) L 07/22/18 13:28 Chloride 106 mmol/L (98-107) 07/22/18 05:30 Carbon Dioxide 26.0 mmol/L (21-32) 07/22/18 05:30 BUN 7 mg/dL (7-18) 07/22/18 05:30 Creatinine 0.81 mg/dL (0.55-1.02) 07/22/18 05:30 Est GFR (MDRD) Af Amer > 60 (>60) 07/22/18 05:30 Est GFR (MDRD) Non-Af > 60 (>60) 07/22/18 05:30 Glucose 110 mg/dL (65-99) H 07/22/18 05:30 Calcium 8.1 mg/dL (8.5-10.1) L 07/22/18 05:30 Corrected Calcium 9.3 mg/dL (8.5-10.1) 07/22/18 05:30 Magnesium 2.0 mg/dL (1.7-2.9) 07/22/18 05:30 Total Bilirubin 0.80 mg/dL (0.2-1.0) 07/22/18 05:30 AST 14 Units/L (15-37) L 07/22/18 05:30 ALT 21 Units/L (12-78) 07/22/18 05:30 Alkaline Phosphatase 101 Units/L (46-116) 07/22/18 05:30 Total Protein 6.3 g/dL (6.4-8.2) L 07/22/18 05:30 Albumin 2.5 g/dL (3.4-5.0) L 07/22/18 05:30 Globulin 3.8 g/dL (2.5-4.5) 07/22/18 05:30 Albumin/Globulin Ratio 0.7 Ratio (1.1-2.1) L 07/22/18 05:30 Amylase 49 Units/L (25-115) 07/20/18 12:43 Lipase 67 Units/L (73-393) L 07/20/18 12:43 Specimen Type Clean catch urine 07/20/18 14:54 Urine Color Yellow (YELLOW) 07/20/18 14:54 Urine Appearance Clear (CLEAR) 07/20/18 14:54 Urine pH 6.5 (5.0 - 8.0) 07/20/18 14:54 Ur Specific [place] 1.010 (1.000-1.030) 07/20/18 14:54 Urine Protein Negative (NEGATIVE) 07/20/18 14:54 Urine Glucose (UA) Negative (NEGATIVE) 07/20/18 14:54 Urine Ketones 4+ (NEGATIVE) 07/20/18 14:54 Urine Occult Blood 1+ (NEGATIVE) 07/20/18 14:54 Urine Nitrite Negative (NEGATIVE) 07/20/18 14:54 Urine Bilirubin Negative (NEGATIVE) 07/20/18 14:54 Urine Urobilinogen Normal (NORMAL) 07/20/18 14:54 Ur Leukocyte Esterase Negative (NEGATIVE) 07/20/18 14:54 Urine RBC 0-2 /HPF (NONE SEEN) 07/20/18 14:54 Urine WBC 0-2 /HPF (NONE SEEN) 07/20/18 14:54 Ur Squamous Epith Cells Rare /HPF (NEGATIVE) 07/20/18 14:54 Urine Bacteria Negative /HPF (NEGATIVE) 07/20/18 14:54 Ur Culture Indicated? No/not indicated 07/20/18 14:54 Acetone, Semi-Quant Negative (NEGATIVE) 07/20/18 18:09 Tissue Pathology To follow 07/20/18 20:24 - Plan (1) Acute appendicitis Status: Acute Qualifiers: Acute appendicitis type: with localized peritonitis Appendicitis gangrene presence: unspecified whether gangrene present Appendicitis perforation presence: without perforation Appendicitis abscess presence: without abscess Qualified Code(s): K35.30 - Acute appendicitis with localized peritonitis, without perforation or gangrene Plan: IV ZOSYN, IV FLAGYL, DILAUDID FOR PAIN, IV HYDRATION, CONTINUE TO MONITOR
--- NOTE | 2018-07-22 21:43 | PCM.PROG ---
Progress Note - Progress Note for Day of Date of Exam: 07/22/18 - Subjective Subjective: IS DAY 2 POST OP APPENDECTOMY. TODAY, SHE IS ALERT AND ORIENTED, LYING IN BED ON MORNING ROUNDS. SHE IS NOTED WITH COMPLAINTS OF ABDOMINAL PAIN. ON EXAMINATION, HEART IS REGULAR IN RATE AND RHYTHM. BILATERAL LUNGS ARE NOTED TO BE CLEAR TO AUSCULTATION. ABDOMEN IS ROUND, SOFT, AND NOTED WITH DIFFUSE TENDERNESS. DRESSINGS ARE DRY AND INTACT WITH NO SIGNS OR SX INFECTION NOTED. ASA DRAIN NOTED WITH A MINIMAL AMOUNT OF DRAINAGE. HER VITALS THIS MORNING ARE 98.4-101-18-93%-158/88. LABS WERE OBTAINED. ABNORMAL LAB VALUES INCLUDE THE FOLLOWING: HGB 11.9, HCT 34.2, POTASSIUM 3.0, GLUCOSE 110, CALCIUM 8.1, AST 14, TOTAL PROTEIN 6.3, ALUBMIN 2.5. PERITONEAL FLUID CULTURE PENDING. SHE IS CURRENTLY RECEIVING IV FLAGYL, IV ZOSYN, IV FLUIDS, AND PAIN MEDICATIONS. WE WILL CONTINUE CURRENT PLAN OF CARE TODAY. OTHERWISE, WE WILL FOLLOW UP WITH AM LABS AND CONTINUE TO MONITOR. - Past Medical Family Social History Past Med/Fam/Surg Hx: No changes since H&P Allergies: Allergies No Known Drug Allergies Allergy (Verified 07/20/18 00:00) - Review of Systems ROS: No change since H&P - Vital Signs and I&O's Vital Signs: Temperature 98.4 F Pulse Rate [Right Brachial] 105 Pulse Rate [Left Brachial] 80 Pulse Rate 115 Respiratory Rate 20 Blood Pressure [Left Arm] 143/91 Blood Pressure [Right Arm] 135/85 Blood Pressure 136/82 O2 Sat by Pulse Oximetry 95 Intake and Output: Intake & Output 07/20/18 07/21/18 07/22/18 07/23/18 11:59 11:59 11:59 11:59 Intake Total 3512 / 3512 3760 / 3760 2099 Output Total 2009 Balance 1502 / 1502 3740 / 3740 2099 - Physical Exam Oriented: Normal Eyes: Normal Ear: Normal Nose: Normal Throat: Normal Respiratory: Normal Cardiovascular: Normal. negative: S3, S4, Murmur : Normal Auscultation: Bowel Sounds: Normal Palpation: Normal Tenderness: Diffuse (soft abdomen , BS + with mild RLQ tenderness ), RLQ Skin: Normal Musculoskeletal: Normal Psychiatric: Normal Mood Description: Calm Affect: Normal Speech Pattern: Clear, Appropriate - Laboratory and Diagnostics Result Diagrams: 07/22/18 05:30 07/22/18 13:28 Labs: 07/20/18 20:20 Perineal Fluid Wound Culture - Preliminary Laboratory WBC 7.8 X10^3/uL (3.6-10.0) 07/22/18 05:30 RBC 4.15 X10^6/uL (3.5-5.4) 07/22/18 05:30 Hgb 11.9 g/dL (12.0-16.0) L 07/22/18 05:30 Hct 34.2 % (36.0-47.0) L 07/22/18 05:30 MCV 82.4 fL (80.0-100.0) 07/22/18 05:30 MCH 28.6 pg (27.0-34.0) 07/22/18 05:30 MCHC 34.7 g/dL (33.0-35.0) 07/22/18 05:30 RDW 12.9 % (11.6-16.5) 07/22/18 05:30 Plt Count 194 X10^3/uL (150.0-450.0) 07/22/18 05:30 Plt Count Comment Adequate (ADEQUATE) 07/20/18 12:43 MPV 6.5 fL (7.4-11.0) L 07/22/18 05:30 Neut % (Auto) 76.8 % (42.0-75.0) H 07/22/18 05:30 Lymph % (Auto) 14.9 % (21.0-51.0) L 07/22/18 05:30 [place] % (Auto) 6.8 % (0.0-13.0) 07/22/18 05:30 Eos % (Auto) 0.8 % (0.9-2.9) L 07/22/18 05:30 Baso % (Auto) 0.7 % (0.2-1.0) 07/22/18 05:30 Neut # (Auto) 6.0 x10^3/uL (2.2-4.8) H 07/22/18 05:30 Lymph # (Auto) 1.2 X10^3/uL (1.3-2.9) L 07/22/18 05:30 [place] # (Auto) 0.5 x10^3/uL (0.3-0.8) 07/22/18 05:30 Eos # (Auto) 0.1 x10^3/uL (0.0-0.2) 07/22/18 05:30 Baso # (Auto) 0.1 X10^3/uL (0.0-0.1) 07/22/18 05:30 Absolute Nucleated RBC 0.0 /100WBC 07/22/18 05:30 Total Counted 100 07/20/18 12:43 Neutrophils % (Manual) 85 % (39-76) H 07/20/18 12:43 Lymphocytes % (Manual) 9 % (13-43) L 07/20/18 12:43 Monocytes % (Manual) 6 % (4-9) 07/20/18 12:43 Plt Morphology Comment Normal (NORMAL) 07/20/18 12:43 RBC Morphology Normal (NORMAL) 07/20/18 12:43 Sodium 139 mmol/L (136-145) 07/22/18 05:30 Corrected Sodium TNP 07/22/18 05:30 Potassium 3.4 mmol/L (3.5-5.1) L 07/22/18 13:28 Chloride 106 mmol/L (98-107) 07/22/18 05:30 Carbon Dioxide 26.0 mmol/L (21-32) 07/22/18 05:30 BUN 7 mg/dL (7-18) 07/22/18 05:30 Creatinine 0.81 mg/dL (0.55-1.02) 07/22/18 05:30 Est GFR (MDRD) Af Amer > 60 (>60) 07/22/18 05:30 Est GFR (MDRD) Non-Af > 60 (>60) 07/22/18 05:30 Glucose 110 mg/dL (65-99) H 07/22/18 05:30 Calcium 8.1 mg/dL (8.5-10.1) L 07/22/18 05:30 Corrected Calcium 9.3 mg/dL (8.5-10.1) 07/22/18 05:30 Magnesium 2.0 mg/dL (1.7-2.9) 07/22/18 05:30 Total Bilirubin 0.80 mg/dL (0.2-1.0) 07/22/18 05:30 AST 14 Units/L (15-37) L 07/22/18 05:30 ALT 21 Units/L (12-78) 07/22/18 05:30 Alkaline Phosphatase 101 Units/L (46-116) 07/22/18 05:30 Total Protein 6.3 g/dL (6.4-8.2) L 07/22/18 05:30 Albumin 2.5 g/dL (3.4-5.0) L 07/22/18 05:30 Globulin 3.8 g/dL (2.5-4.5) 07/22/18 05:30 Albumin/Globulin Ratio 0.7 Ratio (1.1-2.1) L 07/22/18 05:30 Amylase 49 Units/L (25-115) 07/20/18 12:43 Lipase 67 Units/L (73-393) L 07/20/18 12:43 Specimen Type Clean catch urine 07/20/18 14:54 Urine Color Yellow (YELLOW) 07/20/18 14:54 Urine Appearance Clear (CLEAR) 07/20/18 14:54 Urine pH 6.5 (5.0 - 8.0) 07/20/18 14:54 Ur Specific [place] 1.010 (1.000-1.030) 07/20/18 14:54 Urine Protein Negative (NEGATIVE) 07/20/18 14:54 Urine Glucose (UA) Negative (NEGATIVE) 07/20/18 14:54 Urine Ketones 4+ (NEGATIVE) 07/20/18 14:54 Urine Occult Blood 1+ (NEGATIVE) 07/20/18 14:54 Urine Nitrite Negative (NEGATIVE) 07/20/18 14:54 Urine Bilirubin Negative (NEGATIVE) 07/20/18 14:54 Urine Urobilinogen Normal (NORMAL) 07/20/18 14:54 Ur Leukocyte Esterase Negative (NEGATIVE) 07/20/18 14:54 Urine RBC 0-2 /HPF (NONE SEEN) 07/20/18 14:54 Urine WBC 0-2 /HPF (NONE SEEN) 07/20/18 14:54 Ur Squamous Epith Cells Rare /HPF (NEGATIVE) 07/20/18 14:54 Urine Bacteria Negative /HPF (NEGATIVE) 07/20/18 14:54 Ur Culture Indicated? No/not indicated 07/20/18 14:54 Acetone, Semi-Quant Negative (NEGATIVE) 07/20/18 18:09 Tissue Pathology To follow 07/20/18 20:24 - Plan (1) Acute appendicitis Status: Acute Qualifiers: Acute appendicitis type: with localized peritonitis Appendicitis gangrene presence: unspecified whether gangrene present Appendicitis perforation presence: without perforation Appendicitis abscess presence: without abscess Qualified Code(s): K35.30 - Acute appendicitis with localized peritonitis, witho ut perforation or gangrene Plan: IV ZOSYN, IV FLAGYL, DILAUDID FOR PAIN, IV HYDRATION, CONTINUE TO MONITOR
[2018-07-23] MEDS: FLAGYL IV PREMIX 500 MG BAG 500 MG/100 ML BAG IV SCH (05:01)
[2018-07-23] MEDS: ZOSYN VIAL 3.375 GRAMS 3.375 G in NS 100 ML IV + SPIKE MINIBAG* 100 ML IV SCH (05:01)
[2018-07-23 05:22] LABS: BASOPHILS % (AUTO) 0.6 % (0.2-1.0); EOSINOPHILS # (AUTO) 0.3 x10^3/uL (0.0-0.2); EOSINOPHILS % (AUTO) 4.3 % (0.9-2.9); HEMATOCRIT 37.9 % (36.0-47.0); HEMOGLOBIN 12.9 g/dL (12.0-16.0); LYMPHOCYTES # (AUTO) 1.6 X10^3/uL (1.3-2.9); LYMPHOCYTES % (AUTO) 20.1 % (21.0-51.0); MEAN CORPUSCULAR HEMOGLOBIN 28.4 pg (27.0-34.0); MEAN CORPUSCULAR HGB CONC 34.1 g/dL (33.0-35.0); MEAN CORPUSCULAR VOLUME 83.2 fL (80.0-100.0); MONOCYTES # (AUTO) 0.6 x10^3/uL (0.3-0.8); MONOCYTES % (AUTO) 7.5 % (0.0-13.0); NEUTROPHILS # (AUTO) 5.3 x10^3/uL (2.2-4.8); NEUTROPHILS % (AUTO) 67.5 % (42.0-75.0); PLATELET COUNT 226 X10^3/uL (150.0-450.0); RED BLOOD COUNT 4.56 X10^6/uL (3.5-5.4); RED CELL DISTRIBUTION WIDTH 13.1 % (11.6-16.5); WHITE BLOOD COUNT 7.9 X10^3/uL (3.6-10.0)
[2018-07-23] MEDS: D5 1/2 NS 1000 ML 1,000 ML IV SCH (05:33)
[2018-07-23 05:40] LABS: ALANINE AMINOTRANSFERASE 20 Units/L (12-78); ALBUMIN 2.6 g/dL (3.4-5.0); ALKALINE PHOSPHATASE 101 Units/L (46-116); ASPARTATE AMINO TRANSFERASE 16 Units/L (15-37); BLOOD UREA NITROGEN 4 mg/dL (7-18); CALCIUM 8.8 mg/dL (8.5-10.1); CARBON DIOXIDE 27.4 mmol/L (21-32); CHLORIDE 104 mmol/L (98-107); COR CA(FOR HYPOALB) 9.9 mg/dL (8.5-10.1); CREATININE 0.83 mg/dL (0.55-1.02); SODIUM 139 mmol/L (136-145); TOTAL PROTEIN 6.8 g/dL (6.4-8.2); eGFR NON BLACK RACES > 60 (>60)
[2018-07-23] MEDS: K-DUR TAB 20 MEQ PO PRN (06:03)
[2018-07-23] MEDS: MAGNESIUM SULFATE 1 GRAM/100 mL PREMIX 1 GM/100 ML BAG IV PRN ×2 (08:30→10:33)
[2018-07-23] MEDS: LIPITOR TAB 20 MG PO SCH (08:42)
[2018-07-23] MEDS: HYZAAR 50/12.5 MG PO SCH (08:42)
[2018-07-23 09:49] VITALS: BP 150/94
[2018-07-23] MEDS ORDERED: STERILE WATER IRRIGATION ONE (15:40)
== END 2018-07-23 11:40 | disposition home or self-care (01) ==
LOC: ER 11:53 → MED/SURG 11:53
PROVIDERS: ADMIT Internal Medicine; ATTEND Internal Medicine
PROC: APPYLAP (ICD-10-PCS; 2018-07-20 19:45)
DX: I10 Essential (primary) hypertension; K35.80 Unspecified acute appendicitis; E78.00 Pure hypercholesterolemia, unspecified
CPT/HCPCS: 36415; 51702; 74177; 80053; 81001; 82009; 82150; 83690; 83735; 84132; 85025; 87070; 87075; 87077; 87186; 88304; 93005; 96365; 96367; 96374; 96375; 99284; A4216; A4217; A4222; S0028; S0030; G0378; J0330; J1170; J1885; J2175; J2250; J2405; J2543; J2704; J2710; J3010; J3475; J3490; J7030; J7050; J7120; S5010